=== PATIENT | female | born 1950 | race Asian ===

== ENCOUNTER 2020-09-03 16:47 | Inpatient (IN) | payer MEDICARE, OTHER ==
[~2020-09-03 16:47] MED LIST: Iopamidol-370 76% 500 ML 1 ML ONE
[2020-09-03 17:26] LABS: #Lymphocytes 1.5 thou/uL (1.20-3.40); #Monocytes 0.9 thou/uL (0.11-0.59); #Neutrophils 16.2 thou/uL (1.40-6.50); %Basophils 0.2 % (0.0-1.0); %Eosinophils 0.2 % (0.0-10.0); %Monocytes 4.9 % (0.0-10.0); %Neutrophils 86.7 % (42.0-75.0); Hemoglobin 12.5 g/dL (12.0-16.0); Mean Corpuscular HGB CONC 33.7 g/dL (32.0-36.0); Mean Corpuscular Hemoglobin 31.2 pg (27.0-31.0); Mean Corpuscular Volume 92.5 fL (78.0-98.0); Mean Platelet Volume 8.3 fL (7.4-10.4); Platelet Count 242 thou/uL (130-400); RBC Distribution Width 11.7 % (11.5-14.5); Red Blood Cell (RBC) Count 4.03 mill/uL (4.20-5.40); White Blood Cell (WBC) Count 18.7 thou/uL (4.8-10.8)
--- NOTE | 2020-09-03 17:26 | CT ---
CT head noncontrast HISTORY: Head injury. FINDINGS: There is no evidence of acute intracranial hemorrhage or infarct. Hyperdensity at each basa l ganglia has the appearance of physiologic calcification. 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 There is no mass effect or shift of midline structures. Scalp swelling over the right parietal calvarium with tiny pocket of deep soft tissue gas. Small area of dystrophic calcification over the bridge of the nose. IMPRESSION : No acute intracranial abnormalities are demonstrated. Right scalp injury.
[2020-09-03 17:28] LABS: PTT 27.6 sec (22.9-36.1); Prothrombin Time 12.9 sec (12.0-14.7)
--- NOTE | 2020-09-03 17:30 | CT ---
CT cervical spine noncontrast HISTORY: Neck injury. FINDINGS: Vertebral body heights and alignment are maintained. Cervicothoracic junction is intact. No acute fracture or dislocation. Prominent osteophytosis throughout the vertebral bodies and facets. Foraminal stenoses are most sever e at the C4-5 level. Prominent calcification at the carotid bifurcations. 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 IMPRESSION : No acute osseous abnormalities are demonstrated. Prominent degenerative changes of the cervical spine. Atherosclerosis.
[2020-09-03 17:38] LABS: ALT (SGPT) 17 U/L (8-55); AST (SGOT) 25 U/L (5-34); Albumin 4.3 g/dL (3.4-4.8); Alkaline Phosphatase 83 U/L (40-110); Anion Gap 15 mmol/L (10-20); BUN (Urea Nitrogen) 20 mg/dL (9.8-20.1); Bilirubin, Total 0.4 mg/dL (0.2-1.2); Calc. Creatinine Clearance 0 mL/min (70-130); Calcium 9.6 mg/dL (7.8-10.44); Carbon Dioxide 20 mmol/L (23-31); Chloride 108 mmol/L (98-107); Estimated GFR-MDRD 71; Glucose 143 mg/dL (80-115); Potassium 4.3 mmol/L (3.5-5.1); Protein, Total 7.3 g/dL (6.0-8.3); Sodium 139 mmol/L (136-145)
--- NOTE | 2020-09-03 17:51 | RAD ---
Radiograph right ankle 3 views: 09/03/2020 5:32 PM HISTORY: 69-year-old female with acute traumatic injury and pain to right ankle FINDINGS: Oblique fracture of lateral malleolus, with mild to moderate posterior displacement and angulation of distal fragment. Posterior malleolus fracture with mild to moderate posterior displacement and angulation of distal fr agment. Medial malleolus intact. Ankle mortise congruent. Lateral soft tissue contusion. IMPRESSION: 1.) Acute, traumatic, mildly displaced Rgove type B lateral malleolus fracture. 2) acute, traumatic, mildly displaced posterior malleolus fracture.
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
--- NOTE | 2020-09-03 17:53 | RAD ---
RADIOGRAPHRIGHT FOREARM 2 VIEWS: DATE: 09/03/2020 HISTORY: Acute traumatic injury to forearm in 69-year-old female FINDINGS: There is no evidence of fracture of the radius or ulna. IMPRESSION: Negative
[2020-09-03] MEDS ORDERED: Fentanyl 100 MCG/2 ML VIAL ONE ×3 (18:03→21:30)
[2020-09-03] MEDS ORDERED: Boostrix 0.5 ML (Tdap) VIAL ONE (18:03)
--- NOTE | 2020-09-03 19:54 | RAD ---
Right ankle 2 views HISTORY: Fracture. COMPARISON: Earlier exam on the same date. FINDINGS: There is now less than 0.3 cm posterior displacement of the distal fragment of a coronally oriented lateral malleolar fracture of the distal tibia with minimal apex anterior angulation persisting. Small comminuted fragment now projects approximately 0.5 cm posterior and 0.7 cm superior to the major fracture plane. Angulation of the posterior malleolar fracture has also been nearly completely reduced. Talar dome no w sits in better relation to the distal tibia on the lateral view. Fluid distention joint capsule. IMPRESSION : Significant interval improvement in alignment of the right posterior and lateral malleolar fractures, as detailed above.
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
[2020-09-03] MEDS ORDERED: Dextrose 50% Abboject 50 ML SYRINGE SLOW IVP PRN (23:06)
[2020-09-03] MEDS ORDERED: Morphine 2 MG/ML VIAL SLOW IVP PRN (23:06)
[2020-09-03] MEDS ORDERED: Dextrose 5% in Water 1,000 ML IV PRN (23:06)
[2020-09-03] MEDS ORDERED: Ondansetron ODT 4 MG TAB PO PRN (23:06)
[2020-09-03] MEDS ORDERED: Ondansetron PF 4 MG/2 ML Vial IVP PRN (23:06)
[2020-09-03] MEDS ORDERED: HumaLOG 300 UNITS/3 ML VIAL SC PRN (23:06)
[2020-09-03] MEDS ORDERED: Famotidine/PF 20 mg/2ml Vial SLOW IVP SCH (23:15)
[2020-09-03] MEDS: Morphine 4 MG/ML VIAL SLOW IVP PRN (23:15)
[2020-09-03] MEDS: Sodium Chloride 0.9% 1,000 ML IV SCH (23:15)
[2020-09-03 23:42] VITALS: BMI 20.7
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
[2020-09-04] MEDS: Morphine 4 MG/ML VIAL SLOW IVP PRN ×3 (02:31→10:59)
[2020-09-04] MEDS: Sodium Chloride 0.9% 1,000 ML IV SCH (02:33)
[2020-09-04 06:00] LABS: #Basophils 0.1 thou/uL (0.0-0.2); #Eosinphils 0.1 thou/uL (0.0-0.7); #Lymphocytes 2.3 thou/uL (1.20-3.40); #Monocytes 1.1 thou/uL (0.11-0.59); #Neutrophils 7.1 thou/uL (1.40-6.50); %Basophils 0.7 % (0.0-1.0); %Lymphocytes 21.5 % (21.0-51.0); %Monocytes 10.2 % (0.0-10.0); %Neutrophils 66.5 % (42.0-75.0); Hemoglobin 11.4 g/dL (12.0-16.0); Mean Corpuscular HGB CONC 33.9 g/dL (32.0-36.0); Mean Corpuscular Hemoglobin 31.6 pg (27.0-31.0); Mean Corpuscular Volume 93.3 fL (78.0-98.0); Mean Platelet Volume 8.5 fL (7.4-10.4); Platelet Count 217 thou/uL (130-400); RBC Distribution Width 11.9 % (11.5-14.5); Red Blood Cell (RBC) Count 3.59 mill/uL (4.20-5.40); White Blood Cell (WBC) Count 10.7 thou/uL (4.8-10.8)
[2020-09-04 06:16] LABS: Anion Gap 13 mmol/L (10-20); BUN (Urea Nitrogen) 18 mg/dL (9.8-20.1); Calc. Creatinine Clearance 60 mL/min (70-130); Calcium 8.8 mg/dL (7.8-10.44); Carbon Dioxide 23 mmol/L (23-31); Chloride 108 mmol/L (98-107); Estimated GFR-MDRD 89; Glucose 106 mg/dL (80-115); Sodium 140 mmol/L (136-145)
[2020-09-04] MEDS ORDERED: CEFAZOLIN 2 GM in Premix Bag 1 BAG IVPB SCH (07:45)
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
[2020-09-04] MEDS ORDERED: Famotidine/PF 20 mg/2ml Vial SLOW IVP SCH (09:00)
[2020-09-04] MEDS ORDERED: traMADol HCl 50 MG TAB PO PRN ×3 (11:41→15:45)
[2020-09-04] MEDS: traMADol HCl 50 MG TAB PO SCH ×3 (12:26→23:38)
[2020-09-04] MEDS: Acetaminophen 500 MG TAB PO SCH ×3 (12:27→23:37)
[2020-09-04] MEDS ORDERED: Ropivacaine 0.2% HCl/PF (40 MG/20 ML VIAL) ONE (12:55)
[2020-09-04] MEDS ORDERED: Dexamethasone 20 MG/5 ML VIAL ONE (12:55)
[2020-09-04] MEDS ORDERED: Bupivacaine HCl 0.5%/Epinephrine 1:200,000/PF 30 ml Vial ONE (12:55)
[2020-09-04] MEDS ORDERED: Ondansetron PF 4 MG/2 ML Vial ONE (12:55)
[2020-09-04] MEDS ORDERED: PROPOFOL 200 MG/20 ML VIAL ONE (12:55)
[2020-09-04] MEDS ORDERED: Ropivacaine 0.5% HCl/PF (150 MG/30 ML VIAL) ONE (12:55)
[2020-09-04] MEDS ORDERED: Lidocaine 1% PF 5 ML VIAL ONE (12:55)
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
[2020-09-04] MEDS: Ibuprofen 600 MG TAB PO SCH ×2 (13:55→20:19)
[2020-09-04] MEDS ORDERED: Midazolam HCl 2 mg/2 ml Vial ONE (14:27)
[2020-09-04] MEDS ORDERED: Fentanyl 100 MCG/2 ML VIAL ONE ×3 (14:27→18:34)
[2020-09-04 14:46] LABS: SARS-CoV-2 MS2 Positive; SARS-CoV-2 N Gene Negative; SARS-CoV-2 S Gene Negative; SARS-CoV-2 by NAA Not Detected (NotDetected); SARS-CoV-2 orf1ab Negative
[2020-09-04] MEDS ORDERED: Fentanyl 100 MCG/2 ML VIAL IV PRN (15:43)
[2020-09-04] MEDS ORDERED: Ropivacaine 0.2% 550 ML 550 ML NERVE BLCK SCH (15:45)
[2020-09-04] MEDS ORDERED: Promethazine HCl 25 MG/ML VIAL IM PRN ×2 (15:45→18:49)
[2020-09-04] MEDS ORDERED: Ondansetron PF 4 MG/2 ML Vial IVP PRN (15:45)
[2020-09-04] MEDS ORDERED: Zolpidem Tartrate 5 MG TAB PO PRN (15:45)
[2020-09-04] MEDS ORDERED: HYDROcodone/Acetaminophen 5/325 mg Tablet PO PRN (15:45)
--- NOTE | 2020-09-04 18:23 | RAD ---
EXAM: 2 views of the right ankle HISTORY: Ankle pain COMPARISON: 09/03/2020 FINDINGS: 2 limited intraoperative fluoroscopic views of the right ankle shows the patient is status post ORIF of the distal fibula fracture with a plate and screws and of the tibial fracture with screws. Diffuse soft tissue swelling is seen. No degenerative changes are present. IMPRESSION: Status post ORIF of tibia and fibula fractures
[2020-09-04] MEDS ORDERED: HYDROmorphone 2 MG/ML VIAL ONE (18:48)
[2020-09-04] MEDS ORDERED: Ondansetron HCl/PF 4 MG/2 ML Vial IVP PRN (18:49)
[2020-09-04] MEDS ORDERED: Promethazine HCl 25 MG/ML VIAL SLOW IVP PRN (18:49)
[2020-09-04] MEDS ORDERED: HYDROmorphone 2 MG/ML VIAL SLOW IVP PRN (18:49)
[2020-09-04] MEDS ORDERED: hydrALAZINE 20 MG/ML VIAL ONE (19:30)
[2020-09-04] MEDS: CEFAZOLIN 2 GM in Premix Bag 1 BAG IVPB SCH (20:19)
[2020-09-04] MEDS: Famotidine 20 MG TAB PO SCH (20:19)
[2020-09-05] MEDS: Acetaminophen 500 MG TAB PO SCH ×3 (05:00→17:40)
[2020-09-05] MEDS: Ibuprofen 600 MG TAB PO SCH ×3 (05:01→21:34)
[2020-09-05] MEDS: CEFAZOLIN 2 GM in Premix Bag 1 BAG IVPB SCH (05:02)
[2020-09-05] MEDS: traMADol HCl 50 MG TAB PO SCH (05:02)
[2020-09-05] MEDS ORDERED: Bisacodyl 5 MG TAB PO PRN (08:15)
[2020-09-05] MEDS: Famotidine 20 MG TAB PO SCH ×2 (09:06→21:33)
[2020-09-05] MEDS: DULoxetine 30 MG CAP PO SCH (09:08)
[2020-09-05] MEDS: Atorvastatin Calcium 40 MG TAB PO SCH (09:08)
[2020-09-05] MEDS: HYDROcodone/Acetaminophen 5/325 mg Tablet PO PRN ×2 (09:08→23:59)
[2020-09-05] MEDS: Lisinopril 20 MG TAB PO SCH (09:08)
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
[2020-09-05] MEDS: Morphine 4 MG/ML VIAL SLOW IVP PRN (21:33)
[2020-09-06] MEDS: Acetaminophen 500 MG TAB PO SCH ×5 (00:33→23:59)
[2020-09-06] MEDS: Ibuprofen 600 MG TAB PO SCH ×3 (06:05→21:26)
[2020-09-06] MEDS: HYDROcodone/Acetaminophen 5/325 mg Tablet PO PRN (06:07)
[2020-09-06] MEDS: Lisinopril 20 MG TAB PO SCH (09:06)
[2020-09-06] MEDS: DULoxetine 30 MG CAP PO SCH (09:07)
[2020-09-06] MEDS: Atorvastatin Calcium 40 MG TAB PO SCH (09:07)
[2020-09-06] MEDS: Famotidine 20 MG TAB PO SCH ×2 (09:07→21:25)
[2020-09-06] MEDS: Enoxaparin Sodium 40 MG/0.4 ML SYRINGE SC SCH (09:07)
[2020-09-06] MEDS: traMADol HCl 50 MG TAB PO SCH ×3 (11:18→21:26)
[2020-09-06] MEDS ORDERED: Morphine 2 MG/ML VIAL SLOW IVP SCH (12:15)
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
--- NOTE | 2020-09-06 17:01 | PRG ---
DATE OF SERVICE: 09/06/2020 SUBJECTIVE: Ms. Grove is hospital day #3 status post fall with T4 burst fracture, T8 fracture, and right ankle fracture status post ORIF, postop day #2 ankle fracture. She is sitting up in bed with C-TLSO brace per Neurosurgery team, states that her back is hurting quite a bit today. She has tolerated diet. She has not had a bowel movement as yet. She is passing urine. Vital signs remained stable. I have ordered 2 mg of morphine now for acute pain. She seems to be in agony. OBJECTIVE DATA: VITAL SIGNS: Temperature is 98.0, blood pressure 166/71, heart rate is 75, breathing 16 times per minute, 98% on room air. GENERAL: A 69-year-old female sitting up in TLSO and acute traumatic pain. HEENT: Normocephalic. Trachea is midline. RESPIRATORY: Equal rise and fall. CARDIOVASCULAR: Strong pulses. Regular. ABDOMEN: Somewhat limited by TLSO brace. MUSCULOSKELETAL: She moves her extremities well. She has splint to the right lower extremity. She has TLSO and a cervical collar in place. PSYCH: She is anxious because of pain. NEURO: GCS is 15. LABORATORY DATA: Shows a glucose of 130. ASSESSMENT: 1. Struck by a tree and fall. 2. T4 burst fracture. 3. T8 compression fracture. 4. Right lateral and posterior malleolar fracture. 5. Acute traumatic pain. 6. History of hypertension, hyperlipidemia, and anxiety. PLAN: 1. Continue pain control. Additional 2 mg morphine now. 2. She has a nerve block per anesthesia. Continue C-TLSO brace when patient is up and ambulatory. Encourage movement, working with PT/OT. 3. Case Management has been consulted, likely will need rehab placement. 4. Continue all other supportive care including DVT and GI prophylaxis. No family at the bedside to update. Coordinated with the bedside RN. Job ID: [id number]
[2020-09-07] MEDS: traMADol HCl 50 MG TAB PO SCH ×4 (03:46→20:33)
[2020-09-07] MEDS: traMADol HCl 50 MG TAB PO PRN ×2 (03:47→20:34)
[2020-09-07] MEDS: Ibuprofen 600 MG TAB PO SCH ×3 (06:11→20:32)
[2020-09-07] MEDS: Acetaminophen 500 MG TAB PO SCH ×4 (06:15→23:29)
[2020-09-07] MEDS: Famotidine 20 MG TAB PO SCH ×2 (08:38→20:32)
[2020-09-07] MEDS: Lisinopril 20 MG TAB PO SCH (08:38)
[2020-09-07] MEDS: DULoxetine 30 MG CAP PO SCH (08:38)
[2020-09-07] MEDS: Atorvastatin Calcium 40 MG TAB PO SCH (08:38)
[2020-09-07] MEDS: Enoxaparin Sodium 40 MG/0.4 ML SYRINGE SC SCH (08:39)
[2020-09-07] MEDS: HumaLOG 300 UNITS/3 ML VIAL SC PRN (17:28)
--- NOTE | 2020-09-07 18:03 | PRG ---
DATE OF SERVICE: 09/07/2020 SUBJECTIVE: The patient is hospital day #4, status post having a tree fall on her own, in which, she sustained a T4 burst fracture which is being treated in a C-TLSO brace. She is also postop day #3 from an open reduction and internal fixation of a right ankle fracture. She has been progressing slowly with physical therapy, but is making progress. She is tolerating a diet. Her pain is controlled. Her chief complaint today is back spasms and we have added Flexeril to her medication regimen. The patient is requesting to go home as opposed to inpatient rehab as they live in the [facility]. We will discuss this with Case Management to find out what options are available in the area and possibly even home PT. PHYSICAL EXAMINATION: VITAL SIGNS: Temperature is 97.6, heart rate 64, blood pressure 173/71, respirations 18, oxygen saturation 94% on room air. GENERAL: The patient is resting comfortably in bed. She is awake, alert, and oriented. [place] Coma Scale is 15. HEENT: Unremarkable. LUNGS: Clear to auscultation bilaterally with difficulty with deep inspiration due to her brace. HEART: Regular rate and rhythm. ABDOMEN: Nontender. EXTREMITIES: Neurovascularly intact x4. Her right lower extremity has a clean, dry, and intact splint on it. LABORATORY DATA: There are no labs or radiographs to review this morning. ASSESSMENT/PLAN: 1. Status post struck by falling tree. 2. T4 burst fracture, neurologically intact. 3. T8 compression fracture, neurologically intact. 4. Status post open reduction and internal fixation of right lateral and posterior malleolar fracture. 5. History of hypertension, hyperlipidemia, and anxiety. PLAN: Plan will be to continue supportive care. Encourage physical and occupational therapy. We have made adjustments to her pain regimen and we will await final placement decision. The patient was seen this morning with Dr. Peguero during rounds. Job ID: [id number]
[2020-09-07] MEDS: Cyclobenzaprine 10 MG TAB PO PRN (18:41)
[2020-09-08] MEDS: traMADol HCl 50 MG TAB PO SCH ×5 (04:06→21:01)
[2020-09-08] MEDS: traMADol HCl 50 MG TAB PO PRN ×3 (04:07→16:36)
[2020-09-08] MEDS: Acetaminophen 500 MG TAB PO SCH ×3 (06:22→16:33)
[2020-09-08] MEDS: Ibuprofen 600 MG TAB PO SCH (06:23)
[2020-09-08] MEDS: Atorvastatin Calcium 40 MG TAB PO SCH (07:59)
[2020-09-08] MEDS: Lisinopril 20 MG TAB PO SCH (08:00)
[2020-09-08] MEDS: DULoxetine 30 MG CAP PO SCH (08:00)
[2020-09-08] MEDS: Famotidine 20 MG TAB PO SCH ×2 (08:00→21:02)
[2020-09-08] MEDS: Enoxaparin Sodium 40 MG/0.4 ML SYRINGE SC SCH (08:01)
[2020-09-08] MEDS: Cyclobenzaprine 10 MG TAB PO PRN ×2 (08:01→21:01)
[2020-09-08] MEDS ORDERED: Ketorolac Tromethamine 30 MG/ML VIAL ONE (10:54)
[2020-09-08] MEDS ORDERED: Ketorolac Tromethamine 30 MG/ML VIAL IVP SCH (11:00)
[2020-09-08] MEDS ORDERED: Gabapentin 300 MG CAP PO SCH (15:00)
[2020-09-08] MEDS: HumaLOG 300 UNITS/3 ML VIAL SC PRN (16:31)
[2020-09-08] MEDS: Pregabalin 50 MG CAP PO SCH (21:01)
[2020-09-09] MEDS: Acetaminophen 500 MG TAB PO SCH ×3 (00:44→11:15)
[2020-09-09] MEDS: traMADol HCl 50 MG TAB PO SCH ×3 (03:58→15:20)
--- NOTE | 2020-09-09 04:26 | PRG ---
DATE OF SERVICE: 09/08/2020 SUBJECTIVE: The patient was seen this evening during rounds. She was lying in bed, resting comfortably and asleep with no signs of acute distress. Nursing reported no acute events. OBJECTIVE: VITAL SIGNS: Temperature 97.9, pulse 63, respirations 18, oxygen saturation 93% on room air, blood pressure 170/66. ASSESSMENT: 1. Status post hit by tree. 2. Right bimalleolar ankle fracture, status post repair. 3. T4 burst fracture. 4. T8 compression fracture. 5. History of hypertension. 6. Hyperlipidemia. 7. Osteoporosis. 8. Anxiety. PLAN: Continue current diet and pain regimen. Continue physical and occupational therapy. Trauma, likely to readjust patient's home antihypertensive medications. Continue supportive care. The patient is pending discharge to acute rehab facility and she is ready for discharge at this time. Job ID: [id number]
[2020-09-09] MEDS: Cyclobenzaprine 10 MG TAB PO PRN ×2 (05:27→15:53)
[2020-09-09] MEDS: Ibuprofen 600 MG TAB PO SCH ×3 (05:28→22:37)
--- NOTE | 2020-09-09 06:18 | PRG ---
DATE OF SERVICE: 09/08/2020 SUBJECTIVE: Ms. Grove is hospital day #5 status post having a tree fall on her in which she sustained a T4 burst fracture which is being treated in a C-TLSO brace. She also is postop day #4 from an open reduction and internal fixation of right ankle fracture. She has been progressing with physical therapy and doing well. Today, she complains of 8/10 back pain bilaterally. She is writhing in bed and unable to tolerate the pain. She says the pain comes and goes in waves and is at times intolerable. Yesterday, Flexeril was added for back spasms. Of note, her blood pressures have been elevated, systolics 170s to 180s, which is above her baseline of 140s to 150. Discussed with patient the possibility of rehab following discharge as opposed to going home with home health. She is willing and is in agreement. PHYSICAL EXAMINATION: VITAL SIGNS: Temperature 98.3, blood pressure 174/77, pulse 66, respirations 18, O2 saturation 94 on room air. GENERAL: The patient is visibly uncomfortable in bed, rolling from side to side due to back pain. She is awake, alert, and oriented. GCS 15. HEENT: Unremarkable. LUNGS: Clear to auscultation bilaterally. HEART: Regular rate and rhythm. ABDOMEN: Soft, nontender. EXTREMITIES: Clean, dry, and intact. Splint on right lower extremity. Moving all extremities well. LABORATORY DATA: The patient's blood glucoses in the past 24 hours have been 98 and 110. ASSESSMENT: 1. Status post struck by a falling tree. 2. T4 burst fracture, neurologically intact. 3. T8 compression fracture, neurologically intact. 4. Status post open reduction and internal fixation of right lateral and posterior malleolar fracture. 5. History of hypertension. 6. Hyperlipidemia. 7. Anxiety. PLAN: 1. Gave patient Toradol shot during evaluation. Returned in 1 hour to re- evaluate, and the patient reported improvement in her pain, now rating at 3/10. Added Lyrica to her daily medications. The patient should not receive ibuprofen today due to the Toradol shot. 2. Encourage physical and occupational therapy. 3. Discussed with Case Management rehab placement in [place] as this is where patient is from. The patient was seen and evaluated by Dr. Peguero during morning rounds. Discussed plan of care with the patient and family, who are in agreement. Job ID: [id number] [facility]
[2020-09-09] MEDS: Lisinopril 20 MG TAB PO SCH (07:34)
[2020-09-09] MEDS: Famotidine 20 MG TAB PO SCH ×2 (09:55→20:33)
[2020-09-09] MEDS: Pregabalin 50 MG CAP PO SCH ×2 (09:57→20:33)
[2020-09-09] MEDS: Atorvastatin Calcium 40 MG TAB PO SCH (09:57)
[2020-09-09] MEDS: DULoxetine 30 MG CAP PO SCH (09:57)
[2020-09-09] MEDS: Enoxaparin Sodium 40 MG/0.4 ML SYRINGE SC SCH (09:58)
[2020-09-09] MEDS: HumaLOG 300 UNITS/3 ML VIAL SC PRN (11:17)
[2020-09-09] MEDS: traMADol HCl 50 MG TAB PO PRN (15:52)
[2020-09-09] MEDS ORDERED: Acetaminophen/Codeine 30-300mg Tablet PO PRN (16:48)
[2020-09-09] MEDS: hydrALAZINE 25 MG TAB PO SCH (17:08)
[2020-09-09] MEDS: Acetaminophen/Codeine 30-300mg Tablet PO SCH ×2 (17:09→20:33)
[2020-09-09] MEDS ORDERED: Ibuprofen 200 MG TAB PO SCH (22:00)
[2020-09-10] MEDS: Acetaminophen/Codeine 30-300mg Tablet PO SCH ×6 (00:27→23:27)
[2020-09-10] MEDS: hydrALAZINE 25 MG TAB PO SCH ×4 (00:28→23:27)
--- NOTE | 2020-09-10 03:05 | PRG ---
DATE OF SERVICE: 09/09/2020 SUBJECTIVE: The patient was seen this evening during rounds. She was lying in bed, resting comfortably and asleep with no signs of acute distress reported. Nursing reported no acute events. OBJECTIVE: VITAL SIGNS: Temperature 98.1, pulse 68, respirations 16, oxygen saturation 95% on room air, blood pressure 137/67. ASSESSMENT: 1. Status post struck by tree. 2. Right bimalleolar fracture. 3. T4 burst fracture. 4. T8 compression fracture. 5. History of hypertension, hyperlipidemia, osteoporosis, and anxiety. PLAN: Continue current diet and pain regimen. Continue physical and occupational therapy. Continue to adjust antihypertensives as necessary. The patient is pending discharge to acute rehab facility in [place]. She is ready for discharge at this time. Job ID: [id number]
[2020-09-10] MEDS: Ibuprofen 600 MG TAB PO SCH ×3 (05:24→21:21)
--- NOTE | 2020-09-10 06:21 | PRG ---
DATE OF SERVICE: 09/09/2020 SUBJECTIVE: Ms. Grove is hospital day #6, status post having a tree fall on her in which she sustained a T4 burst fracture, which is being treated in a CTLSO brace. She is also postop day #5 from open reduction and internal fixation of right ankle fracture. Yesterday, the patient was in quite a bit of pain and was given Toradol, which relieved her. We also added Lyrica to her pain regimen, which seems to have improve. She reports she slept well through the night. She is sitting in chair at bedside. Reports she is doing well. Dr. Peguero talked to her granddaughter on the phone about rehab placement in the [place] area. She was in agreement. PHYSICAL EXAMINATION: VITAL SIGNS: Temperature 97.9, pulse 64, respirations 16, oxygen saturation 95 on room air, and blood pressure 188/80. GENERAL: Sitting comfortably in chair beside the bed. Awake, alert, and oriented. GCS 15. HEENT: Unremarkable. LUNGS: Clear to auscultation bilaterally. HEART: Regular rate and rhythm. ABDOMEN: Soft and nontender. EXTREMITIES: Clean, dry, and intact. Splint on right lower extremity. Moving all extremities well. ASSESSMENT: 1. Status post struck by a falling tree. 2. T4 burst fracture, neurologically intact. 3. T8 compression fracture, neurologically intact. 4. Status post open reduction and internal fixation of right lateral and posterior malleolar fracture. 5. History of hypertension. 6. Hyperlipidemia. 7. Anxiety. PLAN: 1. The patient's blood pressure continues to be high with systolics 170s to 180s, though pain is controlled. We will increase the patient's home lisinopril from 20 mg to 30 mg. 2. Encourage physical and occupational therapy. 3. Continue to work with Case Management for rehab placement in [place] at [facility]. This patient was seen and evaluated by Dr. Peguero during morning rounds. Discussed plan of care with the patient and family, who are in agreement. Job ID: [id number]
[2020-09-10] MEDS: Lisinopril 20 MG TAB PO SCH (08:21)
[2020-09-10] MEDS: Enoxaparin Sodium 40 MG/0.4 ML SYRINGE SC SCH (08:22)
[2020-09-10] MEDS: Famotidine 20 MG TAB PO SCH (08:22)
[2020-09-10] MEDS: Atorvastatin Calcium 40 MG TAB PO SCH (08:23)
[2020-09-10] MEDS: DULoxetine 30 MG CAP PO SCH (08:24)
[2020-09-10] MEDS: Pregabalin 50 MG CAP PO SCH ×2 (08:24→19:52)
[2020-09-10] MEDS ORDERED: Acetaminophen/Codeine 30-300mg Tablet PO PRN (10:16)
[2020-09-10] MEDS: Senokot S 8.6-50 MG TAB PO SCH ×2 (10:58→19:52)
[2020-09-10] MEDS: Polyethylene Glycol 3350 17 GM Packet PO SCH (10:58)
[2020-09-10] MEDS: HumaLOG 300 UNITS/3 ML VIAL SC PRN (16:43)
[2020-09-10] MEDS: Cyclobenzaprine 10 MG TAB PO PRN (21:22)
--- NOTE | 2020-09-11 00:33 | PRG ---
DATE OF SERVICE: 09/10/2020 SUBJECTIVE: Patient was seen this evening during rounds. She was lying in bed, resting comfortably, and asleep with no signs of acute distress. OBJECTIVE: VITAL SIGNS: Temperature 98.2, pulse 62, respirations 19, oxygen saturation 97% on room air, and blood pressure 157/69. GENERAL: Well-appearing elderly female, lying in bed, resting comfortably, and asleep with no signs of acute distress. ASSESSMENT: 1. Status post struck by tree. 2. Right bimalleolar ankle fracture, status post repair. 3. T4 burst fracture. 4. T8 compression fracture. 5. History of hypertension, hyperlipidemia, osteoporosis, and anxiety. PLAN: Continue current diet and pain regimen. Continue physical and occupational therapy. Continue supportive care. Continue to adjust pain medications. Patient is ready for discharge at this time. She is pending discharge to acute rehab facility. Job ID: [id number]
[2020-09-11] MEDS: Ibuprofen 600 MG TAB PO SCH ×3 (05:01→21:04)
[2020-09-11] MEDS: Acetaminophen/Codeine 30-300mg Tablet PO SCH ×3 (05:01→17:23)
[2020-09-11] MEDS: Polyethylene Glycol 3350 17 GM Packet PO SCH (08:17)
[2020-09-11] MEDS: Senokot S 8.6-50 MG TAB PO SCH ×2 (08:17→20:09)
[2020-09-11] MEDS: Lisinopril 20 MG TAB PO SCH (08:18)
[2020-09-11] MEDS: Pregabalin 50 MG CAP PO SCH ×2 (08:20→20:09)
[2020-09-11] MEDS: Atorvastatin Calcium 40 MG TAB PO SCH (08:20)
[2020-09-11] MEDS: DULoxetine 30 MG CAP PO SCH (08:20)
[2020-09-11] MEDS: hydrALAZINE 25 MG TAB PO SCH ×2 (08:20→17:23)
[2020-09-11] MEDS: Enoxaparin Sodium 40 MG/0.4 ML SYRINGE SC SCH (08:21)
--- NOTE | 2020-09-11 09:46 | RAD ---
Radiograph left shoulder 2 views: 09/11/2020 HISTORY: 69-year-old female with left shoulder pain FINDINGS: Diffuse osteopenia. Mild-moderate DJD AC joint. No high-grade DJD glenohumeral joint. No fracture, di slocation, or subluxation. IMPRESSION: 1. Osteoporosis. 2. 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
[2020-09-11] MEDS: Trospium 20 MG TAB PO SCH (10:16)
[2020-09-11 11:55] LABS: Anion Gap 15 mmol/L (10-20); BUN (Urea Nitrogen) 13 mg/dL (9.8-20.1); Calc. Creatinine Clearance 56 mL/min (70-130); Calcium 10.3 mg/dL (7.8-10.44); Carbon Dioxide 25 mmol/L (23-31); Chloride 102 mmol/L (98-107); Estimated GFR-MDRD 81; Glucose 138 mg/dL (80-115); Sodium 138 mmol/L (136-145)
--- NOTE | 2020-09-11 12:42 | PRG ---
DATE OF SERVICE: 09/11/2020 SUBJECTIVE: Ms. Grove is hospital day 8 status post tree falling on her, in which she sustained a burst fracture which is being treated with a CTLSO brace. She is postop day 7 following an ORIF of right ankle. The patient says she is comfortable sitting in bed. She complains of left shoulder pain. Encourage the patient to work with PT and sit up in the chair and move around and get out of bed. The patient reports she did not sleep well last night and was up most of the night. The patient's blood pressures continued to be elevated ranging systolic 170s to 180s. PHYSICAL EXAMINATION: VITAL SIGNS: Temperature 97.5, pulse 73, respirations 18, O2 saturation 96% on room air, blood pressure ranges from 149 to 176/69 to 79, most recent was 158/67. GENERAL: Lying in bed. Awake, alert, and oriented. GCS 15. HEENT: Unremarkable. LUNGS: Clear to auscultation bilaterally. HEART: Regular rate and rhythm. ABDOMEN: Soft and nontender. EXTREMITIES: Clean, dry, and intact on right lower extremity. Moving all extremities well. ASSESSMENT: 1. Status post struck by a falling tree. 2. T4 burst fracture, neurologically intact. 3. T8 compression fracture, neurologically intact. 4. Status post open reduction and internal fixation of right lateral and posterior malleolar fracture. 5. History of hypertension. 6. Hyperlipidemia. 7. Anxiety. 8. Insomnia. PLAN: 1. We will add melatonin to nighttime medicine to assist with sleep. 2. The patient is currently on lisinopril 30 mg, which is an increase from lisinopril 20. Unsure if blood pressure is related to poor patient pain control. We will monitor for now. 3. Discontinue lactulose. This patient had a bowel movement yesterday. 4. The patient is awaiting approval to go to [facility] in [place], [place]. The patient was seen and evaluated by Dr. Peguero during morning rounds. Discussed plan of care with patient, family, who are in agreement. Job ID: [id number]
--- NOTE | 2020-09-11 14:44 | PRG ---
DATE OF SERVICE: 09/10/2020 SUBJECTIVE: Ms. Grove is hospital day #7, status post having a tree fall on her in which she sustained a T4 burst fracture, which is being treated in a CTLSO brace. She is also postop day #6 from open reduction and internal fixation of right ankle fracture. The patient's pain has been better controlled. She is complaining of being tired this morning. The patient is currently receiving Tylenol 3 q.4 hours. Otherwise, she reports sleeping well through the evening and is eager to leave the hospital. OBJECTIVE/PHYSICAL EXAMINATION: VITAL SIGNS: Temperature 98.2, pulse 64, respirations 18, O2 saturation 95 on room air, and blood pressure 149/70. GENERAL: Lying comfortably in bed. GCS 15. HEENT: Unremarkable. LUNGS: Normal rise and fall. Clear to auscultation. HEART: Regular rate and rhythm. ABDOMEN: Soft and nontender. EXTREMITIES: Splint on right lower extremity clean and dry. Moving all extremities well. ASSESSMENT: 1. Status post struck by a falling tree. 2. T4 burst fracture, neurologically intact. 3. T8 compression fracture, neurologically intact. 4. Status post open reduction and internal fixation of right lateral and posterior malleolar fracture. 5. History of hypertension. 6. Hyperlipidemia. 7. Anxiety. PLAN: 1. Adjust frequency of patient's pain medication from q.4 hours to q.6 hours. 2. The patient's brace is digging into her armpit on the right side. We will contact orthotics to trim it for for comfort. 3.Patient is planning to go to [place] for rehab. Awaiting word from Case Management for insurance approval. 4. The patient has not had a bowel movement since admission. We will add MiraLAX and Senokot as a bowel regimen. 5. Continue PT and OT. Continue supportive care. The patient was seen and evaluated by Dr. Peguero during morning rounds. Discussed plan of care with the patient and who are in agreement. Job ID: [id number] [facility]
[2020-09-11] MEDS: Cyclobenzaprine 10 MG TAB PO PRN (17:23)
[2020-09-11] MEDS: HumaLOG 300 UNITS/3 ML VIAL SC PRN (17:24)
[2020-09-11] MEDS: Melatonin 3 MG TAB PO PRN (21:04)
[2020-09-12] MEDS: Acetaminophen/Codeine 30-300mg Tablet PO SCH ×5 (00:15→23:33)
[2020-09-12] MEDS: hydrALAZINE 25 MG TAB PO SCH ×4 (00:15→23:34)
[2020-09-12] MEDS: Ibuprofen 600 MG TAB PO SCH ×3 (05:26→23:33)
[2020-09-12] MEDS: Pregabalin 50 MG CAP PO SCH ×2 (10:00→20:21)
[2020-09-12] MEDS: Enoxaparin Sodium 40 MG/0.4 ML SYRINGE SC SCH (10:00)
[2020-09-12] MEDS: Lisinopril 20 MG TAB PO SCH (10:01)
[2020-09-12] MEDS: Atorvastatin Calcium 40 MG TAB PO SCH (10:02)
[2020-09-12] MEDS: Polyethylene Glycol 3350 17 GM Packet PO SCH (10:03)
[2020-09-12] MEDS: DULoxetine 30 MG CAP PO SCH (10:03)
[2020-09-12] MEDS: Trospium 20 MG TAB PO SCH (10:03)
[2020-09-12] MEDS: Senokot S 8.6-50 MG TAB PO SCH ×2 (10:03→20:21)
[2020-09-12] MEDS: Cyclobenzaprine 10 MG TAB PO PRN (20:20)
[2020-09-12] MEDS: Melatonin 3 MG TAB PO PRN (23:34)
[2020-09-13] MEDS: Ibuprofen 600 MG TAB PO SCH ×3 (06:06→21:00)
[2020-09-13] MEDS: Acetaminophen/Codeine 30-300mg Tablet PO SCH ×3 (06:06→17:17)
[2020-09-13] MEDS: Cyclobenzaprine 10 MG TAB PO PRN ×2 (09:45→17:18)
[2020-09-13] MEDS: hydrALAZINE 25 MG TAB PO SCH ×2 (09:45→17:17)
[2020-09-13] MEDS: Atorvastatin Calcium 40 MG TAB PO SCH (09:46)
[2020-09-13] MEDS: Trospium 20 MG TAB PO SCH (09:46)
[2020-09-13] MEDS: DULoxetine 30 MG CAP PO SCH (09:46)
[2020-09-13] MEDS: Lisinopril 20 MG TAB PO SCH (09:46)
[2020-09-13] MEDS: Pregabalin 50 MG CAP PO SCH ×2 (09:46→20:56)
[2020-09-13] MEDS: Enoxaparin Sodium 40 MG/0.4 ML SYRINGE SC SCH (09:46)
[2020-09-13] MEDS: Senokot S 8.6-50 MG TAB PO SCH ×2 (09:47→20:56)
[2020-09-13] MEDS: Polyethylene Glycol 3350 17 GM Packet PO SCH (09:47)
[2020-09-13] MEDS: Melatonin 3 MG TAB PO PRN (20:56)
[2020-09-13 23:03] LABS: SARS-CoV-2 MS2 Positive; SARS-CoV-2 N Gene Negative; SARS-CoV-2 S Gene Negative; SARS-CoV-2 by NAA Not Detected (NotDetected); SARS-CoV-2 orf1ab Negative
[2020-09-14] MEDS: Cyclobenzaprine 10 MG TAB PO PRN ×2 (00:34→17:48)
[2020-09-14] MEDS: Acetaminophen/Codeine 30-300mg Tablet PO SCH ×3 (00:34→14:20)
[2020-09-14] MEDS: hydrALAZINE 25 MG TAB PO SCH ×3 (00:36→17:45)
--- NOTE | 2020-09-14 04:56 | PRG ---
DATE OF SERVICE: 09/14/2020 SUBJECTIVE: The patient was seen this evening during rounds. She was lying in bed, resting comfortably and asleep with no signs of acute distress. Nursing reported no acute events. OBJECTIVE: VITAL SIGNS: Temperature 97.6, pulse 60, respirations 16, oxygen saturation 96% on room air, and blood pressure 112/63. GENERAL: Well-appearing elderly female, lying in bed with no signs of acute distress. PULMONARY: Equal chest rise and fall. No signs of acute respiratory distress. ASSESSMENT: 1. Status post struck by tree. 2. Right bimalleolar ankle fracture, status post repair. 3. T4 burst fracture. 4. T8 compression fracture. 5. History of hypertension, hyperlipidemia, osteoporosis, and anxiety. PLAN: Continue current diet and pain regimen. Continue physical and occupational therapy. Continue home medications as previously scheduled. The patient is ready for discharge. She will either go to rehab or home. Job ID: [id number]
[2020-09-14] MEDS: Ibuprofen 600 MG TAB PO SCH ×2 (05:27→14:20)
[2020-09-14] MEDS: Polyethylene Glycol 3350 17 GM Packet PO SCH (08:40)
[2020-09-14] MEDS: DULoxetine 30 MG CAP PO SCH (08:41)
[2020-09-14] MEDS: Atorvastatin Calcium 40 MG TAB PO SCH (08:41)
[2020-09-14] MEDS: Enoxaparin Sodium 40 MG/0.4 ML SYRINGE SC SCH (08:42)
[2020-09-14] MEDS: Pregabalin 50 MG CAP PO SCH (08:42)
[2020-09-14] MEDS: Senokot S 8.6-50 MG TAB PO SCH (08:42)
[2020-09-14] MEDS: Lisinopril 20 MG TAB PO SCH (10:31)
[2020-09-14] MEDS: Trospium 20 MG TAB PO SCH (11:28)
[2020-09-14 19:39] VITALS: BP 159/70; TEMP 98.4
== END 2020-09-14 16:20 | DRG 493 ==
LOC: ERS 16:47 → SURG B 18:37
PROVIDERS: ADMIT Surgery; ATTEND Surgery
PROC: 0QSJ04Z Reposition Right Fibula with Internal Fixation Device, Open Approach (ICD-10-PCS; principal; 2020-09-04)
PROC: 0QSG04Z Reposition Right Tibia with Internal Fixation Device, Open Approach (ICD-10-PCS; 2020-09-04)
DX: S82.841A Displaced bimalleolar fracture of right lower leg, initial encounter for closed fracture (principal); S32.039A Unspecified fracture of third lumbar vertebra, initial encounter for closed fracture; S22.069A Unspecified fracture of T7-T8 vertebra, initial encounter for closed fracture; S22.041A Stable burst fracture of fourth thoracic vertebra, initial encounter for closed fracture; W14.XXXA Fall from tree, initial encounter; Z20.828 Contact with and (suspected) exposure to other viral communicable diseases; E78.5 Hyperlipidemia, unspecified; I10 Essential (primary) hypertension; M81.0 Age-related osteoporosis without current pathological fracture; F41.9 Anxiety disorder, unspecified; F17.210 Nicotine dependence, cigarettes, uncomplicated; Z90.710 Acquired absence of both cervix and uterus; Z79.899 Other long term (current) drug therapy
CPT/HCPCS: 27788; 36415; 36416; 70450; 71260; 72125; 74177; 76000; 80048; 80053; 85025; 85610; 85730; 87635; 90471; 90715; 96365; 96375; 96376; A4306; C1713; C1769; J0360; J0690; J1100; J1170; J1650; J1885; J2250; J2270; J2405; J2704; J2795; J3010; Q9967; S0028; U0003